=== PATIENT | female | born 1955 | race Two or more races ===

== ENCOUNTER 2021-01-09 17:28 | Emergency (ER) | payer OTHER ==
[~2021-01-09] VITALS: Ht 162.6 cm; Wt 65.3 kg
[2021-01-09] MEDS ORDERED: CLARINEX-D 121 EACH PO (17:37)
[2021-01-09] MEDS ORDERED: SINGULAIR4 M1 PO (17:37)
== END 2021-01-09 19:52 | disposition home or self-care (01) ==
LOC: ER 17:28
DX: I63.89 Other cerebral infarction (principal); G45.8 Other transient cerebral ischemic attacks and related syndromes

== ENCOUNTER 2021-02-06 10:25 | Outpatient (CLI) | payer OTHER ==
[~2021-02-06 10:25] MED LIST: CLARINEX-D 121 EACH PO; SINGULAIR4 M1 PO
== END 2021-02-06 10:26 | disposition home or self-care (01) ==
LOC: NUCLEAR 10:25
PROVIDERS: ATTEND Internal Medicine Geriatric Medicine
DX: G45.4 Transient global amnesia (principal); I49.8 Other specified cardiac arrhythmias

== ENCOUNTER → 2021-06-19 08:00 | Outpatient (CLI) | payer OTHER | END | disposition home or self-care (01) | LOC: LAB 08:00 → ADM 14:15 → AMB-ENDOS 06-24 14:15 → EDSTATUS 07-22 14:15 → EDSEX 07-22 14:15 → AMB-ENDOS 07-22 14:15 | PROVIDERS: ATTEND Surgery | DX: K59.09 Other constipation (principal); Z12.11 Encounter for screening for malignant neoplasm of colon; Z03.818 Encounter for observation for suspected exposure to other biological agents ruled out ==

== ENCOUNTER 2021-07-22 07:30 | Day surgery (SDC) | payer OTHER | END 2021-07-22 13:30 | disposition home or self-care (01) | LOC: AMB-ENDOS 07:30 | PROVIDERS: ATTEND Surgery | DX: K62.89 Other specified diseases of anus and rectum (principal); Z20.822 Contact with and (suspected) exposure to COVID-19; Z12.11 Encounter for screening for malignant neoplasm of colon ==